=== PATIENT | female | born 1990 | race African-American/Black ===

== ENCOUNTER 2017-03-11 21:54 | Emergency (ER) | payer OTHER ==
[~2017-03-11] VITALS: Ht 170.2 cm; Wt 63.5 kg
[~2017-03-11 21:54] MED LIST: ADVIL MIGRAINE200 M1 PO; ANTIBIOTIC; BACTRIM DS TAB1 EACH PO; BIRTH CONTROL; BLISOVI FE 1-21 EACH PO; DOXYCYCLINE HY100 M3 PO; ESTARYLLA1 EACH PO; NAPROSYN500 MG PO; NO HOME MEDS; NOHOMEMEDICATIONS; PHENERGAN 25 MG25 M1 PO; PROTONIX40 MG PO
[2017-03-11] MEDS ORDERED: VENTOLIN HFA 1818 GM INH (23:39)
[2017-03-11] MEDS ORDERED: PREDNISONE 20 M20 M1 PO (23:39)
[2017-03-11] MEDS ORDERED: PROMETHAZINE/C118 ML PO (23:40)
== END 2017-03-12 00:05 | disposition home or self-care (01) ==
LOC: ER 21:54
DX: J20.8 Acute bronchitis due to other specified organisms (principal); Z88.5 Allergy status to narcotic agent; Z87.442 Personal history of urinary calculi

== ENCOUNTER 2017-11-04 23:56 | Emergency (ER) | payer OTHER ==
[~2017-11-04] VITALS: Ht 170.2 cm; Wt 68.0 kg
[~2017-11-04 23:56] MED LIST changes: +PREDNISONE 20 M20 M1 PO; +PROMETHAZINE/C118 ML PO; +VENTOLIN HFA 1818 GM INH
[2017-11-05] MEDS ORDERED: MOBIC15 MG PO (00:30)
[2017-11-05] MEDS ORDERED: TRIMETHOPRIM /P10 M1 OPHTHALMIC (00:30)
[2017-11-05 00:31] VITALS: BP 112/90
== END 2017-11-05 00:47 | disposition home or self-care (01) ==
LOC: ER 23:56
DX: H10.89 Other conjunctivitis (principal); Z88.6 Allergy status to analgesic agent; Z88.8 Allergy status to other drugs, medicaments and biological substances; Z87.442 Personal history of urinary calculi

== ENCOUNTER 2018-05-02 18:22 | Emergency (ER) | payer OTHER ==
[~2018-05-02] VITALS: Ht 170.2 cm; Wt 59.9 kg
[~2018-05-02 18:22] MED LIST changes: +MOBIC15 MG PO; +TRIMETHOPRIM /P10 M1 OPHTHALMIC
[2018-05-02] MEDS ORDERED: AMOXICILLIN 50500 MG PO (19:50)
[2018-05-02 20:49] VITALS: BP 123/79
== END 2018-05-02 20:50 | disposition home or self-care (01) ==
LOC: ER 18:22
PROVIDERS: Physician Assistant
DX: J03.00 Acute streptococcal tonsillitis, unspecified (principal); Z88.5 Allergy status to narcotic agent; Z87.442 Personal history of urinary calculi

== ENCOUNTER 2018-05-12 19:06 | Emergency (ER) | payer OTHER ==
[~2018-05-12] VITALS: Ht 170.2 cm; Wt 65.8 kg
[~2018-05-12 19:06] MED LIST changes: +AMOXICILLIN 50500 MG PO
[2018-05-12] MEDS ORDERED: VENTOLIN HFA 1818 GM INH (19:47)
[2018-05-12] MEDS ORDERED: PROMETHAZINE-D118 ML PO (19:47)
[2018-05-12] MEDS ORDERED: DIFLUCAN200 MG PO (20:55)
[2018-05-12 20:58] VITALS: BP 113/71
== END 2018-05-12 20:59 | disposition home or self-care (01) ==
LOC: ER 19:06
DX: J45.909 Unspecified asthma, uncomplicated (principal); Z88.5 Allergy status to narcotic agent; Z88.8 Allergy status to other drugs, medicaments and biological substances; Z87.442 Personal history of urinary calculi

== ENCOUNTER 2018-06-03 10:33 | Emergency (ER) | payer OTHER ==
[~2018-06-03] VITALS: Ht 170.2 cm; Wt 63.5 kg
[~2018-06-03 10:33] MED LIST changes: +DIFLUCAN200 MG PO; +PROMETHAZINE-D118 ML PO
[2018-06-03 11:47] VITALS: BP 132/60
== END 2018-06-03 11:35 | disposition home or self-care (01) ==
LOC: ER 10:33
DX: S49.92XA Unspecified injury of left shoulder and upper arm, initial encounter (principal); J45.909 Unspecified asthma, uncomplicated; Z87.442 Personal history of urinary calculi; Z88.5 Allergy status to narcotic agent; X58.XXXA Exposure to other specified factors, initial encounter; Y93.89 Activity, other specified; Y92.89 Other specified places as the place of occurrence of the external cause; Y99.8 Other external cause status